=== PATIENT | female | born 2000 | race Two or more races ===

== ENCOUNTER → 2024-08-03 | Outpatient (CLI) | payer MEDICAID, SELFPAY ==
--- NOTE | 2024-08-03 13:37 | XR_ITS ---
Examination: Pelvic ultrasound, transabdominal, complete Technique: Transabdominal ultrasound of the pelvis performed using grayscale imaging Date and time of exam: August 03, 2024 1354 hours INDICATIONS: Irregular heavy menses one month FINDINGS: Uterus 7.9 cm endometrial stripe 0.4 cm No uterine mass or intrauterine gestation Right ovary 3.0 cm arterial flow Left ovary 2.7 cm arterial flow IMPRESSION: Negative study
== END | disposition home or self-care (01) ==
LOC: CDIM 13:07
PROVIDERS: PCP Nurse Practitioner Family; Referring Provider Nurse Practitioner Family; Visit Provider Nurse Practitioner Family
DX: N92.0 Excessive and frequent menstruation with regular cycle (principal); R10.9 Unspecified abdominal pain
CPT/HCPCS: 76856

== ENCOUNTER 2024-10-03 13:27 | Emergency (ER) | payer MEDICAID, SELFPAY ==
[2024-10-03 13:41] VITALS: BP 122/82; PULSE 85; RESP 18; TEMP 37.2; O2SAT 99; BMI 32.3
--- NOTE | 2024-10-03 13:44 | XR_ITS ---
Examination: CT abdomen and pelvis without contrast. Coronal 3-D reconstructions. Sagittal 2-D reconstructions. Date and time of exam:October 03, 2024, 1513 hours Comparison 11/21/2017 INDICATIONS: Hematuria several months with lower pelvic pain beginning 2 days ago CTDI: vol (mGy): 11.6 DLP: (mGycm): 607 Technique: Axial images of the abdomen have been obtained, 3 mm slice thickness Intravenous contrast material has not been administered. Low dose protocols were performed. One or more of the following dose reduction techniques were used; automated exposure control, adjustment of the mA and/or KV according to patient size, use of iterative reconstruction technique. Findings: No focal liver or splenic lesions No gallstones No pancreatic or adrenal mass. 2 mm lower pole right renal calculus, no hydronephrosis or ureteral calculi Normal appendix No bowel obstruction Anteverted uterus Contractured urinary bladder no bladder calculi IMPRESSION: 2 mm nonobstructing lower pole right renal calculus No hydronephrosis or renal calculi Normal appendix History the patient has pelvic pain, consider repeat pelvic sonography follow-up
--- NOTE | 2024-10-03 13:44 | PD.EDRME ---
Rapid Medical Screening Exam RME Arrival date/time: 10/03/24 13:27 23-year-old female presents to the emergency department today complains of lower back pain which radiates to the abdomen Chief Complaint: Back Pain/Injury Time Seen by Provider: 10/03/24 13:39 Vital signs: Vital Signs Temperature 99 F 10/03/24 13:41 Pulse Rate 85 10/03/24 13:41 Respiratory Rate 18 10/03/24 13:41 Blood Pressure 122/82 10/03/24 13:41 Pulse Oximetry (%) 99 10/03/24 13:41 Oxygen Delivery Method Room Air 10/03/24 13:41 MD Attestation MD Attestation The patient was seen by the midlevel practitioner. I, the co-signing physician, was present during the entire ER visit. While I did not physically examine the patient, I was available for consultation as needed. I agree with the plan and documentation.
[2024-10-03 14:24] LABS: Basophils # (Auto) 0.0 Thou/mm3 (0.0-0.2); Basophils % (Auto) 0 % (0-2.5); Eosinophils # (Auto) 0.1 Thou/mm3 (0.0-0.5); Eosinophils % (Auto) 1 % (0-10); Hematocrit 40.9 % (36.0-46.0); Hemoglobin 13.4 g/dL (12.0-16.0); Immature Granulocytes Auto 0.02 Thou/mm3 (0.00-0.00); Lymphocytes # (Auto) 2.1 Thou/mm3 (1.0-4.8); Lymphocytes % (Auto) 29 % (10-50); Mean Corpuscular HGB Conc 32.8 g/dl (31.0-37.0); Mean Corpuscular Hemoglobin 28.6 pg (25.0-35.0); Mean Corpuscular Volume 87 fL (80-100); Monocytes # (Auto) 0.8 Thou/mm3 (0.0-0.8); Monocytes % (Auto) 10 % (0-12); Neutrophils # (Auto) 4.4 Thou/mm3 (1.8-7.7); Neutrophils % (Auto) 60 % (37-80); Nucleated Red Blood Cell # 0.00 Thou/mm3 (0.00-0.00); Nucleated Red Blood Cell % 0 /100 WBC (0); Platelet Count 281 Thou/mm3 (140-440); RDW Standard Deviation 42.8 fL (36.4-46.3); Red Blood Count 4.69 Miln/mm3 (4.00-5.20); White Blood Count 7.4 Thou/mm3 (3.6-11.0)
[2024-10-03 14:42] LABS: Collection Type, Urine Clean Catch; WBC,Urine 0 /hpf (0-5)
[2024-10-03 14:48] LABS: Alanine Aminotransferase 18 U/L (10-49); Albumin, Serum 4.4 gm/dL (3.5-5.0); Albumin/Globulin Ratio 1.4 (1.2-2.2); Alkaline Phosphatase 66 U/L (46-116); Anion Gap 7 (7-16); Aspartate Amino Transferase 20 U/L (0-34); BUN/Creatinine Ratio 9 Ratio (12-20); Bilirubin,Total 0.5 mg/dL (0.3-1.2); Blood Urea Nitrogen 9 mg/dL (9-23); Calcium 11.0 mg/dL (8.3-10.6); Calcium (Corrected) 11.0 mg/dL (8.5-10.1); Carbon Dioxide 27.2 mMol/L (20.0-31.0); Chloride 107 mMol/L (98-107); Creatinine (Component) 1.0 mg/dL (0.6-1.3); Estimated Creatinine Clearance 95.9 mL/min (>60); Globulin 3.1 gm/dL (2.3-3.5); Glucose 113 mg/dL (74-106); Lipase 43 U/L (12-53); Osmolality,Calculated 280 (275-295); Potassium 4.4 mMol/L (3.4-5.1); Sodium 141 mMol/L (136-145); Total Protein 7.5 gm/dL (5.7-8.2); eGFR > 60 See Note
[2024-10-03 14:50] LABS: Bilirubin,Urine Negative (Negative); Blood,Urine 3+ (Negative); Clarity,Urine Turbid (Clear/Hazy); Color,Urine Yellow (Lt Yel-Yel); Culture Indicated,Urine Not Indicated; Glucose, Urine Negative (Negative); Ketones,Urine Negative (Negative); Leukocyte Esterase,Urine Negative (Negative); Nitrite,Urine Negative (Negative); PH,Urine 6.0 (5.0-7.0); Protein,Urine Trace (Neg - Trace); RBC,Urine 1656 /hpf (0-3); Specific Gravity,Urine 1.031 (1.001-1.035); Squamous Epithelial Cell,Urine 2 /hpf (0-5); Urobilinogen,Urine 2.0 mg/dL (0.0-1.0)
[2024-10-03 14:51] LABS: HCG Qualitative,Urine Negative
--- NOTE | 2024-10-03 14:58 | PD.EDBACK ---
ED Back Injury Pain RME/HPI General Chief Complaint: Back Pain/Injury Stated Complaint: LOWER BACK PAIN THAT RADIATES TO ABDOMEN Time Seen by Provider: 10/03/24 13:39 Arrival date/time: 10/03/24 13:27 RME / HPI RME / HPI Narrative: 10/03/24 13:27 23-year-old female presents to the emergency department today complains of lower back pain which radiates to the abdomen DR. WETZEL MAIN ED EVALUATION 23 year old female with no stated chronic medical history presents to the ED for evaluation of lower back and lower abdominal pain today. Described as aching in sensation, rating as moderate. Reportedly pain began intermittently 1 year ago and had been evaluated at [place] [facility] where she was discharged home diagnosed with fibroids. States she received instructions to follow up with OBGYN and has an appointment scheduled next month with Dr. Peguero. However, states today the pressure in her vagina became severe adding It feels like something is going to come out . Accompanied by vaginal bleeding she states is only present while urinating; not currently using any pads/tampons. Denies any dysuria or urinary frequency. Denies fevers, chills, nausea, vomiting, diarrhea, or constipation. LMP 09/08/2024 and lasting 6 days which she reports is normal for her. Related Data Home Medications ?Medication ?Instructions ?Recorded ?Confirmed ibuprofen 800 mg tablet 800 mg PO .PRN 10/11/19 02/26/21 melatonin 3 mg tablet 3 mg PO HS PRN 10/11/19 02/26/21 Allergies Allergy/AdvReac Type Severity Reaction Status Date / Time amoxicillin Allergy Unknown RASH, Verified 10/03/24 13:31 DIARRHEA Review of Systems Review of Systems Systems Reviewed: All systems reviewed, normal except as documented ED Exam Narrative Physical exam: GENERAL APPEARANCE:? alert and oriented x 4, well-developed, well-nourished, no acute distress, overweight HEENT: normocephalic, atraumatic NECK: supple LUNGS: no respiratory distress, normal effort HEART: good peripheral perfusion ABDOMEN: non distended; mild discomfort to the suprapubic region, no rebound, no guarding EXTREMITIES:? atraumatic NEUROLOGIC: awake; alert and oriented x4 SKIN: warm, dry, normal color; no rashes Course Course Course Narrative: The labs overall are unremarkable. The UA is positive for blood and does not appear consistent with UTI given lack of bacteria and white cell count. Patient does have a nonobstructing stone on the right kidney. Plan to get a pelvis ultrasound dc home if negative with instructions to follow up with urology. The ultrasound is negative for acute findings. Will DC home with instructions to follow up with PCP and potential referral to urologis for kidney stone. Otherwise stable. Quality Measures none Orders Category Date Time Status CT abdomen pelvis wo con Stat Exams 10/03/24 13:44 Completed US pelvic complete Stat Exams 10/03/24 15:53 Completed CBC Stat Lab 10/03/24 13:59 Completed Comprehensive Metabolic Panel Stat Lab 10/03/24 13:59 Completed HCG Qualitative,Urine Stat Lab 10/03/24 14:00 Completed Lipase Stat Lab 10/03/24 13:59 Completed UA, C/S IF [Urinalysis, C/S if Indicated] Stat Lab 10/03/24 14:00 Completed Vital Signs Vital signs: Vital Signs Temperature 99 F 10/03/24 13:41 Pulse Rate 85 10/03/24 13:41 Respiratory Rate 18 10/03/24 13:41 Blood Pressure 122/82 10/03/24 13:41 Pulse Oximetry (%) 99 10/03/24 13:41 Oxygen Delivery Method Room Air 10/03/24 13:41 Pulse ox is 99% on room air which is adequate. Back Pain / Injury MDM Narrative MDM Narrative:: Silvana Giordano am scribing for and in the presence of Dr. Wetzel. Patient data External records reviewed:: [facility] previous records (I reviewed ED visit on 03/10/2021 ) Clinical information provided by:: patient Social determinants that could affect healthcare access:: none Patient has the following chronic illnesses:: No chronic medical history reported How is presenting disease/condition affected by chronic disease/condition?: no chronic disease Evaluation data The following diagnostics were reviewed and interpreted by me:: lab results and radiology exam(s) Lab and/or radiology exams considered but not ordered:: None Interpretation Summary: Ordering Physician: Sade BAUTISTA)Giacomo NP Date of Service: 10/03/24 Procedure(s): CT abdomen pelvis wo con Accession Number(s): [id number] cc: Sade BAUTISTA)Giacomo NP; Jamie Winston MD; Jaz England MD~ Examination: CT abdomen and pelvis without contrast. Coronal 3-D reconstructions. Sagittal 2-D reconstructions. Date and time of exam:October 03, 2024, 1513 hours Comparison 11/21/2017 INDICATIONS: Hematuria several months with lower pelvic pain beginning 2 days ago CTDI: vol (mGy): 11.6 DLP: (mGycm): 607 Technique: Axial images of the abdomen have been obtained, 3 mm slice thickness Intravenous contrast material has not been administered. Low dose protocols were performed. One or more of the following dose reduction techniques were used; automated exposure control, adjustment of the mA and/or KV according to patient size, use of iterative reconstruction technique. Findings: No focal liver or splenic lesions No gallstones No pancreatic or adrenal mass. 2 mm lower pole right renal calculus, no hydronephrosis or ureteral calculi Normal appendix No bowel obstruction Anteverted uterus Contractured urinary bladder no bladder calculi IMPRESSION: 2 mm nonobstructing lower pole right renal calculus No hydronephrosis or renal calculi Normal appendix History the patient has pelvic pain, consider repeat pelvic sonography follow-up Dictated By: Jamie Winston MD Signed By: <Electronically signed by Jamie Winston MD in OV> 10/03/24 1534 Ordering Physician: Cristy Wetzel MD Date of Service: 10/03/24 Procedure(s): US pelvic complete Accession Number(s): [id number] cc: Jamie Winston MD; Cristy Wetzel MD; Jaz England MD~ Examination: Pelvic ultrasound, transabdominal, complete Technique: Transabdominal ultrasound of the pelvis performed using grayscale imaging Date and time of exam: October 03, 2024, 1655 hours INDICATIONS: Pelvic pain and vaginal bleeding beginning one year ago FINDINGS: Uterus 6.9 cm endometrial stripe 1.2 cm No uterine mass or intrauterine gestation Right ovary 2.7 cm flow. Left ovary 3.0 cm flow IMPRESSION: Negative examination Dictated By: Jamie Winston MD Signed By: <Electronically signed by Jamie Winston MD in OV> 10/03/24 1749 Medications / Prescriptions Medications or Prescriptions considered but not ordered:: None Medication administrations:: None Consultations Consultation(s) initiated? (list below): No Diagnosis Most likely diagnosis given after review of the tests above:: Hematuria, nephrolithiasis Admission Indicated Admission indicated?: not indicated Admission Request Was there a request for admission?: No Disposition Plan Disposition Plan: Discharge Discharge Attestation Discharge Attestation: The patient and all family members were given an opportunity to ask questions and understood the discharge instructions. Discharge instructions specifically effects, indications for sooner follow up or return to the emergency department, and the expected course of current diagnosis. Patient condition: Stable Discharge Plan Plan Patient Disposition: HOME (Self Care) Patient condition on transfer: Stable Prescriptions/Referrals Prescriptions/Med Rec: No Action ibuprofen 800 mg tablet 800 mg PO .PRN melatonin 3 mg tablet 3 mg PO HS PRN Referrals: Jaz England MD [Primary Care Provider] - In 1 week Problem List Clinical Impression: Hematuria, Nephrolithiasis Patient/Caregiver Discharge Instructions Education Materials: ED Hematuria, ED Kidney Stone Undescended No ... Additional Instructions: May take ibuprofen 800 mg every 8 hours as needed for pain. May also take Tylenol 1 g every 6 hours as needed for pain. Print Language: Upper Sorbian Stand Alone Forms: [employer] Award Info., Work/School Release, Patient Portal Info Letter
--- NOTE | 2024-10-03 15:53 | XR_ITS ---
Examination: Pelvic ultrasound, transabdominal, complete Technique: Transabdominal ultrasound of the pelvis performed using grayscale imaging Date and time of exam: October 03, 2024, 1655 hours INDICATIONS: Pelvic pain and vaginal bleeding beginning one year ago FINDINGS: Uterus 6.9 cm endometrial stripe 1.2 cm No uterine mass or intrauterine gestation Right ovary 2.7 cm flow. Left ovary 3.0 cm flow IMPRESSION: Negative examination
[2024-10-03 15:56] VITALS: BP 117/85; PULSE 71; RESP 18; TEMP 36.6; O2SAT 98
== END 2024-10-03 19:04 | disposition home or self-care (01) ==
PROVIDERS: Nurse Practitioner Primary Care; Emergency Provider Family Medicine; PCP Psychiatry & Neurology Neurology
DX: N20.0 Calculus of kidney (principal); Z88.0 Allergy status to penicillin
CPT/HCPCS: 36415; 74176; 76856; 80053; 81001; 81025; 83690; 85025; 99284